=== PATIENT | male | born 1945 | race Caucasian/White ===

== ENCOUNTER 2021-04-08 10:10 | Outpatient (REF) | payer MEDICARE, BC, SELFPAY ==
[2021-04-08 11:13] LABS: MANUAL DIFF FLAG NO
[2021-04-08 11:24] LABS: Basophils Percent Auto 0.3 % (0-2); Eosinophils Absolute Auto 0.1 X10*3/uL (0.0-0.4); Eosinophils Percent Auto 0.6 % (0-4); Hematocrit 43.2 % (42-52); Hemoglobin 14.7 g/dl (14.0-18.0); Imm Gran Abs Auto 0.03 X10*3/uL (0.00-0.03); Imm Gran Pct Auto 0.3 % (0.0-0.4); Lymphocytes Absolute Auto 1.8 X10*3/uL (1.2-4.9); Lymphocytes Percent Auto 20.7 % (20-40); Mean Corpuscular Hemoglobin 31.5 pg (27.0-33.0); Mean Corpuscular Volume 92.5 fL (80-98); Mean Platelet Volume 10.4 fL (9.4-12.4); Monocytes Absolute Auto 0.6 X10*3/uL (0.1-1.2); Monocytes Percent Auto 6.6 % (2-11); Neutrophils Absolute Auto 6.2 X10*3/uL (2.0-8.3); Neutrophils Percent Auto 71.5 % (45-73); Platelet Count 194 X10*3/uL (160-400); Red Blood Count 4.67 X10*6/uL (4.60-5.80); Red Cell Distribution Width 12.3 % (11.0-16.0); White Blood Count 8.7 X10*3/uL (4.8-10.8)
[2021-04-08 12:20] LABS: Alanine Aminotransferase 43 U/L (0-40); Albumin Level 3.9 g/dL (3.5-5.0); Alkaline Phosphatase 101 U/L (39-117); Anion Gap 15 (12-20); Aspartate Amino Transferase 30 U/L (5-37); Blood Urea Nitrogen 13 mg/dL (9-16); Calcium 9.2 mg/dL (8.4-10.2); Carbon Dioxide 24 mmol/L (22-29); Chloride 103 mmol/L (96-108); Cholesterol 116 mg/dL; Estimated Glomerular Filt Rate > 60; Glucose Random 205 mg/dL (60-115); HDL Cholesterol 38 mg/dL; LDL Cholesterol Calculated 51 mg/dl; Potassium 3.5 mmol/L (3.3-5.1); Sodium 138 mmol/L (135-145); Total Protein 6.6 g/dL (6.5-8.0); Triglycerides 139 mg/dL
== END 2021-04-08 10:11 | disposition home or self-care (01) ==
LOC: HO.LAB 10:10
PROVIDERS: PCP Internal Medicine; Visit Provider Internal Medicine
DX: E78.00 Pure hypercholesterolemia, unspecified (principal); I10 Essential (primary) hypertension
CPT/HCPCS: 36415; 80053; 80061; 85025

== ENCOUNTER 2021-04-14 07:14 | Outpatient (REF) | payer MEDICARE, BC, SELFPAY ==
[2021-04-14 08:33] LABS: Glucose Urine UA NEG (NEG); Leukocyte Esterase Urine NEG (NEG); Nitrite Urine NEG (NEG); PH 6.5 (5.0-8.0); Urine Blood NEG (NEG); Urine Ketones NEG (NEG); Urine Protein NEG (NEG-TRACE)
[2021-04-14 08:42] LABS: Appearance Urine CLEAR; Color Urine YELLOW
[2021-04-14 08:45] LABS: Estimated Average Glucose 111 mg/dL; Hemoglobin A1c % 5.5 %
[2021-04-14 09:01] LABS: Creatinine Urine 140.03 mg/dL; Microalbumin Urine < 5.0 mg/L
[2021-04-14 09:08] LABS: Anion Gap 12 (12-20); Blood Urea Nitrogen 10 mg/dL (9-16); Calcium 9.2 mg/dL (8.4-10.2); Carbon Dioxide 29 mmol/L (22-29); Chloride 103 mmol/L (96-108); Estimated Glomerular Filt Rate > 60; Glucose Random 89 mg/dL (60-115); Potassium 3.8 mmol/L (3.3-5.1); Sodium 140 mmol/L (135-145)
== END 2021-04-14 07:15 | disposition home or self-care (01) ==
LOC: HO.LAB 07:14
PROVIDERS: PCP Internal Medicine; Visit Provider Internal Medicine
DX: R73.01 Impaired fasting glucose (principal)
CPT/HCPCS: 36415; 80048; 81003; 82043; 83036

== ENCOUNTER 2021-10-20 08:10 | Outpatient (REF) | payer MEDICARE, BC, SELFPAY ==
[2021-10-20 08:25] LABS: MANUAL DIFF FLAG NO
[2021-10-20 08:55] LABS: Basophils Percent Auto 0.4 % (0-2); Eosinophils Absolute Auto 0.1 X10*3/uL (0.0-0.4); Eosinophils Percent Auto 1.1 % (0-4); Hematocrit 45.6 % (42.0-52.0); Hemoglobin 15.4 g/dl (14.0-18.0); Imm Gran Abs Auto 0.03 X10*3/uL (0.00-0.03); Imm Gran Pct Auto 0.4 % (0.0-0.4); Lymphocytes Absolute Auto 1.9 X10*3/uL (1.2-4.9); Lymphocytes Percent Auto 22.5 % (20-40); Mean Corpuscular HGB Conc 33.8 g/dl (31.0-36.0); Mean Corpuscular Hemoglobin 31.8 pg (27.0-33.0); Mean Platelet Volume 10.3 fL (9.4-12.4); Monocytes Absolute Auto 0.8 X10*3/uL (0.1-1.2); Monocytes Percent Auto 9.7 % (2-11); Neutrophils Absolute Auto 5.7 x10*3/uL (2.0-8.3); Neutrophils Percent Auto 65.9 % (45-73); Platelet Count 197 X10*3/uL (160-400); Red Blood Count 4.85 X10*6/uL (4.60-5.80); Red Cell Distribution Width 12.3 % (11.0-16.0); White Blood Count 8.6 X10*3/uL (4.8-10.8)
[2021-10-20 08:58] LABS: Appearance Urine CLEAR; Color Urine YELLOW; Glucose Urine UA NEG (NEG); Leukocyte Esterase Urine NEG (NEG); Nitrite Urine NEG (NEG); Urine Blood NEG (NEG); Urine Ketones NEG (NEG); Urine Protein NEG (NEG-TRACE)
[2021-10-20 09:19] LABS: Alanine Aminotransferase 47 U/L (0-40); Albumin Level 4.1 g/dL (3.5-5.0); Alkaline Phosphatase 84 U/L (39-117); Anion Gap 12 (12-20); Aspartate Amino Transferase 36 U/L (5-37); Bilirubin Total 1.4 mg/dL (0.0-1.0); Blood Urea Nitrogen 14 mg/dL (9-16); Calcium 9.5 mg/dL (8.4-10.2); Carbon Dioxide 28 mmol/L (22-29); Chloride 104 mmol/L (96-108); Cholesterol 130 mg/dL; Estimated Glomerular Filt Rate > 60; Glucose Random 93 mg/dL (60-115); HDL Cholesterol 38 mg/dL; LDL Cholesterol Calculated 71 mg/dl; Potassium 3.6 mmol/L (3.3-5.1); Sodium 140 mmol/L (135-145); Total Protein 7.1 g/dL (6.5-8.0); Triglycerides 109 mg/dL
== END 2021-10-20 08:11 | disposition home or self-care (01) ==
LOC: HO.LAB 08:10
PROVIDERS: PCP Internal Medicine; Visit Provider Internal Medicine
DX: I10 Essential (primary) hypertension (principal); E78.00 Pure hypercholesterolemia, unspecified; R35.1 Nocturia
CPT/HCPCS: 36415; 80053; 80061; 81003; 84443; 85025

== ENCOUNTER 2022-04-13 07:56 | Outpatient (REF) | payer MEDICARE, BC, SELFPAY ==
[2022-04-13 09:15] LABS: Alanine Aminotransferase 45 U/L (0-40); Albumin Level 4.1 g/dL (3.5-5.0); Alkaline Phosphatase 78 U/L (39-117); Aspartate Amino Transferase 31 U/L (5-37); Bilirubin Direct 0.5 mg/dL (0.0-0.5); Bilirubin Total 1.1 mg/dL (0.0-1.0); Total Protein 6.9 g/dL (6.5-8.0)
== END 2022-04-13 07:57 | disposition home or self-care (01) ==
LOC: HO.LAB 07:56
PROVIDERS: PCP Internal Medicine; Visit Provider Internal Medicine
DX: R94.5 Abnormal results of liver function studies (principal)
CPT/HCPCS: 36415; 80076

== ENCOUNTER 2022-06-09 08:08 | Outpatient (REF) | payer MEDICARE, BC, SELFPAY ==
[2022-06-09 08:32] LABS: MANUAL DIFF FLAG NO
[2022-06-09 08:57] LABS: Basophils Percent Auto 0.3 % (0-2); Eosinophils Absolute Auto 0.1 X10*3/uL (0.0-0.4); Eosinophils Percent Auto 1.2 % (0-4); Hematocrit 43.6 % (42.0-52.0); Imm Gran Abs Auto 0.02 X10*3/uL (0.00-0.03); Imm Gran Pct Auto 0.3 % (0.0-0.4); Lymphocytes Absolute Auto 2.1 X10*3/uL (1.2-4.9); Lymphocytes Percent Auto 27.4 % (20-40); Mean Corpuscular HGB Conc 34.4 g/dl (31.0-36.0); Mean Platelet Volume 10.4 fL (9.4-12.4); Monocytes Absolute Auto 0.8 X10*3/uL (0.1-1.2); Monocytes Percent Auto 9.9 % (2-11); Neutrophils Absolute Auto 4.8 x10*3/uL (2.0-8.3); Neutrophils Percent Auto 60.9 % (45-73); Platelet Count 188 X10*3/uL (160-400); Red Blood Count 4.69 X10*6/uL (4.60-5.80); Red Cell Distribution Width 12.4 % (11.0-16.0); White Blood Count 7.8 X10*3/uL (4.8-10.8)
[2022-06-09 09:27] LABS: Alanine Aminotransferase 37 U/L (0-40); Albumin Level 4.1 g/dL (3.5-5.0); Alkaline Phosphatase 85 U/L (39-117); Anion Gap 13 (12-20); Aspartate Amino Transferase 31 U/L (5-37); Bilirubin Total 1.7 mg/dL (0.0-1.0); Blood Urea Nitrogen 14 mg/dL (9-16); Calcium 8.9 mg/dL (8.4-10.2); Carbon Dioxide 29 mmol/L (22-29); Chloride 103 mmol/L (96-108); Cholesterol 116 mg/dL; Estimated Glomerular Filt Rate > 60; Glucose Random 89 mg/dL (60-115); HDL Cholesterol 38 mg/dL; LDL Cholesterol Calculated 59 mg/dl; Sodium 141 mmol/L (135-145); Triglycerides 95 mg/dL
[2022-06-09 09:29] LABS: Appearance Urine Clear; Color Urine Yellow; Glucose Urine UA Negative (Negative); Leukocyte Esterase Urine Negative (Negative); Nitrite Urine Negative (Negative); PH 6.5 (5.0-9.0); Specific Gravity - Urine 1.015 (1.005-1.025); UMIC TRIGGER UA YES; Urine Blood Negative (Negative); Urine Ketones Trace mg/dL (Negative); Urine Protein Negative (Neg-Trace)
[2022-06-09 09:52] LABS: Thyroid Stimulating Hormone 0.52 uIU/mL (0.32-4.0)
== END 2022-06-09 08:09 | disposition home or self-care (01) ==
LOC: HO.LAB 08:08
PROVIDERS: PCP Internal Medicine; Visit Provider Internal Medicine
DX: I10 Essential (primary) hypertension (principal); E78.00 Pure hypercholesterolemia, unspecified
CPT/HCPCS: 36415; 80053; 80061; 81001; 81003; 84443; 85025

== ENCOUNTER 2022-09-29 07:46 | Outpatient (REF) | payer MEDICARE, BC, SELFPAY ==
[2022-09-29 08:02] LABS: MANUAL DIFF FLAG NO
[2022-09-29 08:33] LABS: Basophils Percent Auto 0.4 % (0-2); Eosinophils Percent Auto 1.5 % (0-4); Hemoglobin 15.1 g/dl (14.0-18.0); Imm Gran Abs Auto 0.02 X10*3/uL (0.00-0.03); Imm Gran Pct Auto 0.2 % (0.0-0.4); Lymphocytes Absolute Auto 2.3 X10*3/uL (1.2-4.9); Lymphocytes Percent Auto 27.1 % (20-40); Mean Corpuscular HGB Conc 33.6 g/dl (31.0-36.0); Mean Corpuscular Hemoglobin 31.5 pg (27.0-33.0); Mean Corpuscular Volume 93.9 fL (80.0-98.0); Mean Platelet Volume 10.5 fL (9.4-12.4); Monocytes Percent Auto 9.5 % (2-11); Neutrophils Absolute Auto 5.1 x10*3/uL (2.0-8.3); Neutrophils Percent Auto 61.3 % (45-73); Platelet Count 198 X10*3/uL (160-400); Red Blood Count 4.79 X10*6/uL (4.60-5.80); Red Cell Distribution Width 12.1 % (11.0-16.0); White Blood Count 8.4 X10*3/uL (4.8-10.8)
[2022-09-29 08:34] LABS: Eosinophils Absolute Auto 0.1 X10*3/uL (0.0-0.4); Monocytes Absolute Auto 0.8 X10*3/uL (0.1-1.2)
[2022-09-29 08:42] LABS: Appearance Urine Clear; Color Urine Yellow; Glucose Urine UA Negative (Negative); Leukocyte Esterase Urine Negative (Negative); Nitrite Urine Negative (Negative); PH 6.5 (5.0-9.0); Urine Blood Negative (Negative); Urine Ketones Trace mg/dL (Negative); Urine Protein Trace mg/dL (Neg-Trace)
[2022-09-29 09:05] LABS: Alanine Aminotransferase 47 U/L (0-40); Alkaline Phosphatase 90 U/L (39-117); Anion Gap 13 (12-20); Aspartate Amino Transferase 37 U/L (5-37); Bilirubin Total 1.3 mg/dL (0.0-1.0); Blood Urea Nitrogen 12 mg/dL (9-16); Calcium 8.7 mg/dL (8.4-10.2); Carbon Dioxide 27 mmol/L (22-29); Chloride 104 mmol/L (96-108); Cholesterol 124 mg/dL; Estimated Glomerular Filt Rate > 60; Glucose Random 92 mg/dL (60-115); HDL Cholesterol 43 mg/dL; LDL Cholesterol Calculated 61 mg/dl; Potassium 3.5 mmol/L (3.3-5.1); Sodium 140 mmol/L (135-145); Total Protein 6.9 g/dL (6.5-8.0); Triglycerides 100 mg/dL
== END 2022-09-29 07:47 | disposition home or self-care (01) ==
LOC: HO.LAB 07:46
PROVIDERS: PCP Internal Medicine; Visit Provider Internal Medicine
DX: E78.00 Pure hypercholesterolemia, unspecified (principal); I10 Essential (primary) hypertension
CPT/HCPCS: 36415; 80053; 80061; 81003; 84443; 85025

== ENCOUNTER 2022-11-27 08:13 | Outpatient (REF) | payer MEDICARE, BC, SELFPAY ==
[2022-11-27 09:33] LABS: Alanine Aminotransferase 38 U/L (0-40); Albumin Level 4.1 g/dL (3.5-5.0); Alkaline Phosphatase 98 U/L (39-117); Anion Gap 13 (12-20); Aspartate Amino Transferase 34 U/L (5-37); Bilirubin Total 1.4 mg/dL (0.0-1.0); Blood Urea Nitrogen 13 mg/dL (9-16); Calcium 8.9 mg/dL (8.4-10.2); Carbon Dioxide 28 mmol/L (22-29); Chloride 104 mmol/L (96-108); Estimated Glomerular Filt Rate > 60; Glucose Random 97 mg/dL (60-115); Potassium 3.9 mmol/L (3.3-5.1); Sodium 141 mmol/L (135-145); Total Protein 6.9 g/dL (6.5-8.0)
== END 2022-11-27 08:14 | disposition home or self-care (01) ==
LOC: HO.LAB 08:13
PROVIDERS: PCP Internal Medicine; Visit Provider Internal Medicine
DX: I10 Essential (primary) hypertension (principal); R94.5 Abnormal results of liver function studies
CPT/HCPCS: 36415; 80053

== ENCOUNTER 2022-12-30 11:43 | Outpatient (REF) | payer MEDICARE, BC, SELFPAY ==
--- NOTE | ~2022-12-30 | XR_ITS ---
EXAMINATION: XR CHEST CLINICAL INFORMATION: Cough. COMPARISON: Chest x-ray 09/15/2016 TECHNIQUE: 2 views of the chest were obtained. FINDINGS: Lungs are clear. No pulmonary vascular congestion. There is no pleural effusion. The heart size is normal. The cardiac and mediastinal contours are normal. . There are multilevel degenerative changes of dorsal spine. XR/XR chest 2V IMPRESSION: Unremarkable examination.
== END 2022-12-30 11:44 | disposition home or self-care (01) ==
LOC: HO.XRAY 11:43
PROVIDERS: PCP Internal Medicine; Visit Provider Internal Medicine
DX: R05.2 Subacute cough (principal)
CPT/HCPCS: 71046

== ENCOUNTER 2023-05-18 07:53 | Outpatient (REF) | payer MEDICARE, BC, SELFPAY ==
[2023-05-18 08:15] LABS: MANUAL DIFF FLAG NO
[2023-05-18 08:51] LABS: Basophils Percent Auto 0.3 % (0-2); Eosinophils Absolute Auto 0.1 X10*3/uL (0.0-0.4); Eosinophils Percent Auto 1.1 % (0-4); Hematocrit 45.9 % (42.0-52.0); Hemoglobin 15.7 g/dl (14.0-18.0); Imm Gran Abs Auto 0.04 X10*3/uL (0.00-0.03); Imm Gran Pct Auto 0.4 % (0.0-0.4); Lymphocytes Absolute Auto 2.4 X10*3/uL (1.2-4.9); Lymphocytes Percent Auto 25.3 % (20-40); Mean Corpuscular HGB Conc 34.2 g/dl (31.0-36.0); Mean Corpuscular Hemoglobin 31.5 pg (27.0-33.0); Mean Corpuscular Volume 92.2 fL (80.0-98.0); Mean Platelet Volume 10.8 fL (9.4-12.4); Monocytes Absolute Auto 0.8 X10*3/uL (0.1-1.2); Monocytes Percent Auto 8.1 % (2-11); Neutrophils Absolute Auto 6.1 x10*3/uL (2.0-8.3); Neutrophils Percent Auto 64.8 % (45-73); Platelet Count 192 X10*3/uL (160-400); Red Blood Count 4.98 X10*6/uL (4.60-5.80); Red Cell Distribution Width 12.1 % (11.0-16.0); White Blood Count 9.4 X10*3/uL (4.8-10.8)
[2023-05-18 09:17] LABS: Alanine Aminotransferase 56 U/L (0-40); Alkaline Phosphatase 88 U/L (39-117); Anion Gap 13 (12-20); Aspartate Amino Transferase 35 U/L (5-37); Bilirubin Total 1.2 mg/dL (0.0-1.0); Blood Urea Nitrogen 10 mg/dL (9-16); Calcium 9.5 mg/dL (8.4-10.2); Carbon Dioxide 28 mmol/L (22-29); Chloride 103 mmol/L (96-108); Cholesterol 110 mg/dL (<200); Estimated Glomerular Filt Rate > 60; Glucose Random 90 mg/dL (60-115); HDL Cholesterol 38 mg/dL (>40); LDL Cholesterol Calculated 55 mg/dL (<100); Potassium 3.5 mmol/L (3.3-5.1); Sodium 140 mmol/L (135-145); Total Protein 7.4 g/dL (6.5-8.0); Triglycerides 89 mg/dL (<150)
[2023-05-18 09:35] LABS: TSH reflex Free T4 0.68 uIU/mL (0.32-4.0)
== END 2023-05-18 07:54 | disposition home or self-care (01) ==
LOC: HO.LAB 07:53
PROVIDERS: PCP Internal Medicine; Visit Provider Internal Medicine
DX: I10 Essential (primary) hypertension (principal); Z86.73 Personal history of transient ischemic attack (TIA), and cerebral infarction without residual deficits; E78.00 Pure hypercholesterolemia, unspecified
CPT/HCPCS: 36415; 80053; 80061; 84443; 85025

== ENCOUNTER 2023-06-22 08:16 | Outpatient (REF) | payer MEDICARE, BC, SELFPAY ==
[2023-06-22 09:40] LABS: Alanine Aminotransferase 36 U/L (0-40); Albumin Level 3.9 g/dL (3.5-5.0); Alkaline Phosphatase 91 U/L (39-117); Anion Gap 16 (12-20); Aspartate Amino Transferase 30 U/L (5-37); Bilirubin Total 1.3 mg/dL (0.0-1.0); Blood Urea Nitrogen 11 mg/dL (9-16); Calcium 9.4 mg/dL (8.4-10.2); Carbon Dioxide 25 mmol/L (22-29); Chloride 103 mmol/L (96-108); Estimated Glomerular Filt Rate > 60; Glucose Random 95 mg/dL (60-115); Magnesium 2.1 mg/dL (1.6-2.6); Potassium 3.9 mmol/L (3.3-5.1); Sodium 140 mmol/L (135-145); Total Protein 7.2 g/dL (6.5-8.0)
== END 2023-06-22 08:17 | disposition home or self-care (01) ==
LOC: HO.LAB 08:16
PROVIDERS: PCP Internal Medicine; Visit Provider Internal Medicine
DX: I10 Essential (primary) hypertension (principal); R94.5 Abnormal results of liver function studies
CPT/HCPCS: 36415; 80053; 83735

== ENCOUNTER 2023-10-11 13:34 | Outpatient (REF) | payer MEDICARE, BC, SELFPAY | END 2023-10-11 13:35 | disposition home or self-care (01) | LOC: HO.SH 13:34 | PROVIDERS: Visit Provider Internal Medicine | DX: Z01.118 Encounter for examination of ears and hearing with other abnormal findings (principal); H90.3 Sensorineural hearing loss, bilateral | CPT/HCPCS: 92557 ==

== ENCOUNTER 2023-11-16 13:49 | Outpatient (REF) | payer MEDICARE, BC, SELFPAY ==
--- NOTE | 2023-11-17 08:44 | MHC.AU.MED ---
Medical Clearance for Hearing Instrumentation Date: 11/16/23 Patient Name: Edmar Bird Date of : 1945 Primary Care Provider: Chris Pascal MD We have seen your patient on 11/16/23 and have determined that they are a candidate for amplification (See accompanying report). Specifically, they would benefit from: Hearing aid use in both ears There is a statute that addresses Medical Evaluation Requirements prior to fitting a patient with a hearing aid. According to [place] statute 265 CMR:6.03(1), (a) General. Except as provided in 265 CMR 6.03(1)(b), a molder bench shall not sell a hearing aid unless the prospective user has presented to the molder bench a written statement signed by a licensed physician that states that the patient's hearing loss has been medically evaluated and the patient may be considered a candidate for a hearing aid. The medical evaluation must have taken place within the preceding six months. Please note: Due to the [place] Statute referenced above, we cannot accept a signature other than that of a licensed physician. ORIENTAL RUG STRETCHER and PA signatures cannot be accepted. I am in agreement with the above recommendation. There is no medical contraindication for hearing instrumentation. Physician Signature Date Physician Name (Printed)
--- NOTE | 2023-11-18 13:10 | MHC.AU.HA1 ---
Hearing Aid Evaluation Date of Visit: 11/16/23 Historical Information: Description of Hearing: Within normal steeply sloping to severe sensorineural hearing loss, bilaterally. Summary: Edmar was reportedly [facility]; therefore, he is hoping to utilize the hearing aid benefit through his [facility] Federal Employee insurance. Explained that [facility] recently changed requirements/process for their hearing aid benefit (i.e., needs medical clearance, prior approval, and possibly INFRASTRUCTURE SOLUTIONS ARCHITECT >40 dB HL). Edmar understands that he is the first patient to try this through [facility] and he is agreeable to working together to figure out the process. Edmar reportedly lives a sedentary lifestyle. He does not typically attend restaurants or noisy environments. He does socialize with friends, talks on the telephone, goes to doctors' appointments, shopping, etc. Edmar opted to trial a battery-powered RITE hearing aid. Discussed bluetooth compatibility with his Samsung cellphone. He reportedly rarely uses his cellphone and makes a majority of phone calls on the landline. Given his preference for a battery-powered hearing aid and lack of interest in bluetooth, chose Oticon for newest battery-powered RITE. *Will need to request medical clearance from PCP then submit prior approval to [facility]. Edmar reported that if the hearing aids are not approved through [facility], he is unsure he will be able to afford them himself. Therefore, he did not pay the $350.00 consultation fee today. If approved by [facility], Edmar will need to pay the $350.00 consultation fee prior to ordering the devices. He also knows he will be responsible for any amount over the $2,500.00 limit by [facility]. Quoted $2963.00 for Quiet Level technology hearing aids ($463.00 estimated patient responsibility, plus initial $350.00 consultation fee). Hearing Aid Prescription: Based on the individual?s shared listening needs, communication environments, dexterity, desire for connectivity, and personal preferences, the following prescription for amplification has been made: Right ear: Make, Model, Color: Oticon Real 3 miniRITE-T Color: Chroma Beige Battery Size: Rechargeable Renal Technician/Slim Tube: Type of Earmold/Dome/CShell/SlimTip: 6mm double barajas dome Left ear: Left ear prescription to be same as Right Hearing Aid above: Make, Model, Color: Oticon Real 3 miniRITE-T Color: Chroma Beige Battery Size: Rechargeable Renal Technician/Slim Tube: 2 Type of Earmold/Dome/CShell/SlimTip: 6mm double barajas dome Accessories/Assistive Technology: Parcel Contractor, TV adapter Plan of Care: Patient wishes to purchase hearing aids as prescribed Action Taken/Action Needed: Prior authorization to be requested. Medical Clearance to be requested from PCP/ENT. Hearing Instrument Fitting to be scheduled when materials arrive Primary Diagnosis: H90.3 Bilateral Sensorineural Hearing Loss Signature: Provider: Ethan Govea, [facility]
== END 2023-11-16 13:50 | disposition home or self-care (01) ==
LOC: HO.HAP 13:49
PROVIDERS: Visit Provider Internal Medicine
DX: Z13.89 Encounter for screening for other disorder (principal)

== ENCOUNTER → 2023-12-15 12:40 | Outpatient (REF) | payer MEDICARE, BC, SELFPAY ==
--- NOTE | 2023-12-15 12:44 | CA_ITS ---
Transthoracic Echocardiogram Patient (Last, First, Middle): Edmar Bird H Gender: Male Date of : 1945 Age: 78 Procedure Date: 12/15/2023 Procedure Type: Transthoracic Echocardiogram Location: OP Height: 172.72 cm Weight: 79.38 kg BSA: 1.93 m2 Heart Rate: bpm BP: 146 / 68 mmHg Pharmaceutical Plant Operator: TO Referring MD: Chris Pascal MD Symptoms: CARDIAC MURMUR Study Quality: Fair/Contrast ECG Rhythm: Sinus Conclusions: - The left ventricular systolic function is normal. The calculated ejection fraction is 65% by biplane method. - There is mild calcification of the aortic valve. - No obvious valvular pathology seen on this study. Findings Procedure Information Contrast agent, definity, is being given per protocol without apparent complications. Left Ventricle Normal left ventricular cavity size. There is mildly increased left ventricular wall thickness. The left ventricular systolic function is normal. The calculated ejection fraction is 65% by biplane method. There is no evidence of regional wall motion abnormalities. Evidence suggests grade I (mild) diastolic dysfunction. Focal hypertrophy of the basal septum. Right Ventricle Mildly increased right ventricular cavity size. There is normal right ventricular systolic function. Atria Both atria are normal in size. Aortic Valve There is mild calcification of the aortic valve. There is no aortic valve stenosis. There is no aortic valve regurgitation. Mitral Valve There is mild anterior mitral leaflet thickening. There is trace mitral valve regurgitation. There is no mitral valve stenosis. Pulmonic Valve The pulmonic valve is likely normal. Tricuspid Valve Normal tricuspid valve structure. There is trace tricuspid valve regurgitation. Tricuspid regurgitation envelope is inadequate for calculation of right ventricular systolic pressure. Great Vessels The asc aorta is normal in size. Venous The inferior vena cava is normal in size and collapses greater than 50% with inspiration. Pericardium/Pleural There is no evidence of pericardial effusion. Prior Study Comparison No significant change compared to prior study dated: 01/27/2019. Recommendations, Care & Conclusions No obvious valvular pathology seen on this study. Measurements 2D Linear Measurements IVSd: 1.62 0.6-0.9/0.6-1.0 cm LVIDd: 4.29 3.9-5.3/4.2-5.9 cm LVIDd Index: 2.22 2.4-3.2/2.2-3.1 cm/m2 LVIDs: 2.87 2.0-3.6 cm LVPWd: 1.10 0.7-1.1 cm LA Diam: 4.10 2.7-3.8/3.0-4.0 cm LAIDs Index: 2.12 1.5-2.3 cm/m2 LV Mass: 276.14 67-162/88-224 g LV Mass Index: 143.08 43-95/49-115 g/m2 LVOT Diam: 2.20 3.0+(-)1.3 cm 2D Systolic Function EF 4C: 63.60 >55% EF 2C: 65.50 >55% EF BiP: 65.00 >55% Mitral Valve MV VTI: 0.28 MV Pk Juventino: 1.03 MV Mn Juventino: 0.54 MV Pk Grad: 4.00 MV Mn Grad: 1.00 MV Pk E: 0.51 MV PK A: 0.94 MV Decel Time: 278.00 E/A: 0.50 E'Lateral: 5.33 E'Medial: 3.05 E/E' Med: 16.60 E/E' Lat: 9.50 PHT: 81.00 MVA PHT: 2.72 MVA Continuity: 3.05 Decel Latimer: 1.82 Aortic Valve AoV Pk Juventino: 1.81 AoV Mn Juventino: 1.25 AoV VTI: 0.38 AoV Pk Grad: 13.00 Aov Mn Grad: 7.00 KINGSLEY Cont.VTI: 2.28 LVOT LVOT Pk Juventino: 1.06 LVOT Mn Juventino: 0.67 LVOT VTI: 0.23 LVOT Pk Grad: 4.00 LVOT Mn Grad: 2.00 LVOT Diam: 2.20 LVOT Area: 3.80 Diastolic Function MV Pk E: 0.51 MV Pk A: 0.94 E/A: 0.50 E'Medial: 3.05 E/E' Med: 16.60 E' Laterial: 5.33 E/E' Lat: 9.50 Right Ventricle TAPSE (mm): 22.30 TVS' Juventino: 10.80 Tricuspid Valve RA Press: 3.00 Great Vessels Aorta Sinus of Valsalva: 3.39 2.0-3.5 cm Ao Asc: 3.70 2.1-3.4 cm Updated in Other Vendor System with Status of Final Madhu Little MD electronically signed on 12/16/2023 1:30:22 PM with status of Final
== END ==
LOC: HO.CARD 12:40
PROVIDERS: PCP Internal Medicine; Visit Provider Internal Medicine
DX: R01.1 Cardiac murmur, unspecified (principal)
CPT/HCPCS: 93306; Q9957

== ENCOUNTER → 2023-12-15 12:44 | Outpatient (BNV) | payer MEDICARE, BC, SELFPAY | PROVIDERS: PCP Internal Medicine; Visit Provider Internal Medicine | DX: R01.1 Cardiac murmur, unspecified (principal); I35.8 Other nonrheumatic aortic valve disorders | CPT/HCPCS: 93306 ==

== ENCOUNTER 2024-02-24 07:03 | Outpatient (REF) | payer MEDICARE, BC, SELFPAY ==
[2024-02-24 07:16] LABS: MANUAL DIFF FLAG NO
[2024-02-24 07:58] LABS: Basophils Percent Auto 0.4 % (0-2); Eosinophils Absolute Auto 0.1 X10*3/uL (0.0-0.4); Eosinophils Percent Auto 0.9 % (0-4); Hematocrit 45.9 % (42.0-52.0); Hemoglobin 15.5 g/dl (14.0-18.0); Imm Gran Abs Auto 0.02 X10*3/uL (0.00-0.03); Imm Gran Pct Auto 0.2 % (0.0-0.4); Lymphocytes Absolute Auto 2.1 X10*3/uL (1.2-4.9); Lymphocytes Percent Auto 26.1 % (20-40); Mean Corpuscular HGB Conc 33.8 g/dl (31.0-36.0); Mean Corpuscular Hemoglobin 31.6 pg (27.0-33.0); Mean Corpuscular Volume 93.7 fL (80.0-98.0); Mean Platelet Volume 10.2 fL (9.4-12.4); Monocytes Absolute Auto 0.8 X10*3/uL (0.1-1.2); Monocytes Percent Auto 9.8 % (2-11); Neutrophils Absolute Auto 5.1 x10*3/uL (2.0-8.3); Neutrophils Percent Auto 62.6 % (45-73); Platelet Count 201 X10*3/uL (160-400); Red Cell Distribution Width 12.1 % (11.0-16.0); White Blood Count 8.2 X10*3/uL (4.8-10.8)
[2024-02-24 08:06] LABS: Estimated Average Glucose 111 mg/dL; Hemoglobin A1c % 5.5 % (<6.0)
[2024-02-24 08:30] LABS: Alanine Aminotransferase 36 U/L (0-40); Albumin Level 4.4 g/dL (3.5-5.0); Alkaline Phosphatase 97 U/L (39-117); Anion Gap 14 (12-20); Aspartate Amino Transferase 32 U/L (5-37); Bilirubin Total 1.3 mg/dL (0.0-1.0); Blood Urea Nitrogen 15 mg/dL (9-16); Calcium 9.3 mg/dL (8.4-10.2); Carbon Dioxide 27 mmol/L (22-29); Chloride 103 mmol/L (96-108); Cholesterol 124 mg/dL (<200); Estimated Glomerular Filt Rate > 60; Glucose Random 90 mg/dL (60-115); HDL Cholesterol 46 mg/dL (>40); LDL Cholesterol Calculated 58 mg/dL (<100); Potassium 3.2 mmol/L (3.3-5.1); Sodium 141 mmol/L (135-145); Total Protein 7.9 g/dL (6.5-8.0); Triglycerides 103 mg/dL (<150)
[2024-02-24 08:46] LABS: Thyroid Stimulating Hormone 0.64 uIU/mL (0.32-4.0)
== END 2024-02-24 07:04 | disposition home or self-care (01) ==
LOC: HO.LAB 07:03
PROVIDERS: PCP Internal Medicine; Visit Provider Internal Medicine
DX: E78.00 Pure hypercholesterolemia, unspecified (principal); I10 Essential (primary) hypertension; R73.01 Impaired fasting glucose
CPT/HCPCS: 36415; 80053; 80061; 83036; 84443; 85025

== ENCOUNTER 2024-03-02 07:21 | Outpatient (REF) | payer MEDICARE, BC, SELFPAY ==
[2024-03-02 09:01] LABS: Potassium 4.1 mmol/L (3.3-5.1)
== END 2024-03-02 07:22 | disposition home or self-care (01) ==
LOC: HO.LAB 07:21
PROVIDERS: PCP Internal Medicine; Visit Provider Internal Medicine
DX: E87.6 Hypokalemia (principal)
CPT/HCPCS: 36415; 84132

== ENCOUNTER 2024-10-17 07:44 | Outpatient (REF) | payer MEDICARE, BC, SELFPAY ==
[2024-10-17 08:04] LABS: MANUAL DIFF FLAG NO
[2024-10-17 08:34] LABS: Basophils Percent Auto 0.3 % (0-2); Eosinophils Absolute Auto 0.1 X10*3/uL (0.0-0.4); Eosinophils Percent Auto 0.9 % (0-4); Hematocrit 46.1 % (42.0-52.0); Hemoglobin 15.5 g/dl (14.0-18.0); Imm Gran Abs Auto 0.03 X10*3/uL (0.00-0.03); Imm Gran Pct Auto 0.3 % (0.0-0.4); Lymphocytes Absolute Auto 2.6 X10*3/uL (1.2-4.9); Lymphocytes Percent Auto 30.2 % (20-40); Mean Corpuscular HGB Conc 33.6 g/dl (31.0-36.0); Mean Corpuscular Hemoglobin 31.6 pg (27.0-33.0); Mean Corpuscular Volume 94.1 fL (80.0-98.0); Mean Platelet Volume 10.1 fL (9.4-12.4); Monocytes Absolute Auto 0.8 X10*3/uL (0.1-1.2); Monocytes Percent Auto 9.5 % (2-11); Neutrophils Absolute Auto 5.1 x10*3/uL (2.0-8.3); Neutrophils Percent Auto 58.8 % (45-73); Platelet Count 184 X10*3/uL (160-400); Red Cell Distribution Width 12.6 % (11.0-16.0); White Blood Count 8.7 X10*3/uL (4.8-10.8)
[2024-10-17 09:14] LABS: Alanine Aminotransferase 56 U/L (0-40); Albumin Level 4.1 g/dL (3.5-5.0); Alkaline Phosphatase 86 U/L (39-117); Anion Gap 11 (12-20); Aspartate Amino Transferase 39 U/L (5-37); Bilirubin Total 1.3 mg/dL (0.0-1.0); Blood Urea Nitrogen 14 mg/dL (9-16); Calcium 8.9 mg/dL (8.4-10.2); Carbon Dioxide 26 mmol/L (22-29); Chloride 107 mmol/L (96-108); Cholesterol 120 mg/dL (<200); Estimated Glomerular Filt Rate > 60; Glucose Random 93 mg/dL (60-115); HDL Cholesterol 43 mg/dL (>40); LDL Cholesterol Calculated 57 mg/dL (<100); Potassium 3.6 mmol/L (3.3-5.1); Sodium 140 mmol/L (135-145); Total Protein 7.8 g/dL (6.5-8.0); Triglycerides 102 mg/dL (<150)
[2024-10-17 09:19] LABS: Appearance Urine Clear; Color Urine Yellow; Glucose Urine UA Negative (Negative); Leukocyte Esterase Urine Negative (Negative); Nitrite Urine Negative (Negative); Specific Gravity - Urine <= 1.005 (1.005-1.025); Urine Blood Negative (Negative); Urine Ketones Negative (Negative); Urine Protein Negative (Neg-Trace)
[2024-10-17 09:32] LABS: TSH reflex Free T4 0.54 uIU/mL (0.32-4.0)
== END 2024-10-17 07:45 | disposition home or self-care (01) ==
LOC: HO.LAB 07:44
PROVIDERS: PCP Internal Medicine; Visit Provider Internal Medicine
DX: I10 Essential (primary) hypertension (principal)
CPT/HCPCS: 36415; 80053; 80061; 81003; 84443; 85025

== ENCOUNTER 2025-02-28 06:56 | Outpatient (REF) | payer MEDICARE, BC, SELFPAY ==
--- OUTSIDE RECORDS SUMMARY | 2025-02-28 06:59 | XMS_ITS | Patient Health Record ---
[facility] Address [address] [place] [address] Care Team Providers Care Tank Storage Supervisor Name Role Phone Chris Pascal MD Primary Care Provider Maddy De La Torre Unavailable [phone] Allergies Allergen (clinical drug ingredient) Drug/Non Drug Allergy documented on EMR Reaction Allergy Type Onset Date Status ciprofloxacin Cipro Unknown Drug Allergy Act tanisha Levaquin Unknown Drug Allergy Active Reason For Referral No Information Medications Medication SIG (Take, Route, Frequency, Duration) Notes Start Date End Date Status Multi Adult Gummies - as directed Orally Active Aspirin 81 MG 1 tablet Orally Once a day for 30 day(s) Active Plavix Active Metamucil Active Tamsulosin HCl 0.4 MG 1 capsule Orally O nce a day for 30 day(s) Active Clopidogrel Bisulfate 75 MG 1 tablet Ora lly Once a day for 30 day(s) Active oxyBUTYnin Chloride 5 MG 1 tablet Orally Twice a day for 30 day(s) Active Atorvastatin Calcium 40 MG 1 tablet Oral ly Once a day for 30 day(s) Active Lisinopril 40 MG 1 tablet Orally Once a day for 30 day(s) Active amLODIPine Besylate 5 MG 1 tablet Orally Once a day for 30 day(s) Active Immunizations Vaccine Route Administration Date Status Comme nts COVID-19 Moderna Vaccine Unknown 12/26/2020 Administered First Dose: 01/15 Social History Tobacco Use: Social History Observation Description Date Details (start date - stop date) Former Smoker NA - NA Tobacco Use/Smoking Question Answer Notes Are you a: former smoker Additional Findings: Tobacco Non-User Current no n-smoker Alcohol Screen Question Answer Notes Did you have a drink containing alcohol in the p ast year? No Points 0 Interpretation Negative Tobacco use other than smoking: Question Answer Notes Are you an other tobacco user? No Plan Of Treatment No Information Insurance Providers Payer Name Payer Address Payer Phone Subscriber Number Group Number Insured Name Patient Relationship to Insured Coverage Start Date Coverage End Date Medicare National Govt S[employer] [address] [place] [phone] [id number] Edmar Chin Self - patient is the insured [facility] [address] [place] [address] [id number] Edmar Chin Self - patient is the insured Medical (General) History Medical History History ICD Code Chicken pox Arthritis asthma Headaches Hiatal hernia High blood pressure Stroke Warts Surgical History Surgery Date(Month/Year) dental hernia
[2025-02-28 08:32] LABS: Alanine Aminotransferase 53 U/L (0-40); Albumin Level 4.2 g/dL (3.5-5.0); Aspartate Amino Transferase 41 U/L (5-37); Bilirubin Direct 0.4 mg/dL (0.0-0.5); Bilirubin Total 1.3 mg/dL (0.0-1.0); Total Protein 7.2 g/dL (6.5-8.0)
[2025-02-28 13:05] LABS: Alkaline Phosphatase 87 U/L (39-117)
== END 2025-02-28 06:57 | disposition home or self-care (01) ==
LOC: HO.LAB 06:56
PROVIDERS: PCP Internal Medicine; Visit Provider Internal Medicine
DX: R94.5 Abnormal results of liver function studies (principal)
CPT/HCPCS: 36415; 80076

== ENCOUNTER 2025-05-11 07:27 | Outpatient (REF) | payer MEDICARE, BC, SELFPAY ==
--- OUTSIDE RECORDS SUMMARY | 2025-01-09 05:00 | XMS_ITS ---
Author Name [facility] Organization [facility] [place] [facility] [place] Address [address] [place] [address] Support Name Relationship Address Phone BI [facility] Emergency Contact [address] [address] Insurance Providers: All historical and current Section Date Range: From patient's date of to the date document was created. This section includes the names of all active insurance providers for the patient. Insurance Provider Type of Coverage Plan Name Start of Policy Coverage End of Policy Coverage Group Number Member ID Insurance Provider's Telephone Number Policy Farooq's Name Patient's Relationship to Policy Farooq MEDICARE (WNR) MEDICARE (M) PART A Sep 27, 2011 PART A [id number] NU ZAFAR ESPINO PATIENT MEDICARE (WNR) MEDICARE (M) PART B Sep 27, 2011 PART B [id number] ZAFAR ESPINO PATIENT Selected Encounter This section includes the information on record at [place] for the Encounter. Date/Time Encounter Type Encounter Description Reason Provider Source Jan 09, 2025 09:00 AM HEARING AID REPAIR/MODIFYING AUDIOLOGY ICD-10-CM Z46.1 Encounter for fitting and adjustment of hearing aid ENID WOOD [facility] Encounter Template Text not used by [place] Assessments - Encounter Diagnoses This section includes the primary and secondary diagnoses documented for the Encounter. Date/Time Primary/Secondary Diagnosis Diagnosis Name Provider Source Jan 09, 2025 09:15 AM PRIMARY Encounter for fitting and adjustment of hearing aid ENID WOOD [place] [facility] [place] [facility] Jan 09, 2025 09:15 AM SECONDARY Sensorineural hearing loss, bilateral ENID WOOD [facility] Encounter Notes: All associated encounter notes This section contains the clinical notes associated to the Encounter. Date/Time Encounter Note(s) Provider Source Jan 09, 2025 08:34 AM AUDIOLOGY E & M NO TE: LOCAL TITLE: AUDIOLOGY CLINIC STANDARD TITLE: AUDIOLOGY E & M NOTE DATE OF NOTE: JAN 09, 2025@08:34 ENTRY DATE: JAN 09, 2025@08:34:07 AUTHOR: ENID WOOD COSIGNER: URGENCY: STATUS: COMPLETED was seen January 09, 2025 for routine maintenance on her Phonak LISANDRA aids. Wax guards, domes and retention lines replaced. Biologic check good. Otoscopy revealed clear canals both ears. [facility] will call as needed for follow up/maintenance. Suicide Screen: C-SSRS Screening [place]-Suicide Severity Rating Scale (C-SSRS Screener) 1. Over the past month, have you wished you were or wished you could go to sleep and not wake up? No 2. Over the past month, have you had any actual thoughts of killing yourself? No 3. Over the past month, have you been thinking about how you might do this? Response not required due to responses to other questions. 4. Over the past month, have you had these thoughts and had some intention of acting on them? Response not required due to responses to other questions. 5. Over the past month, have you started to work out or worked out the details of how to kill yourself? Response not required due to responses to other questions. 6. If yes, at any time in the past month did you intend to carry out this plan? Response not required due to responses to other questions. 7. In your lifetime, have you ever done anything, started to do anything, or prepared to do anything to end your life (for example, collected pills, obtained a gun, gave away valuables, went to the roof but didn't jump)? No 8. If YES, was this within the past 3 months? Response not required due to responses to other questions. /sis/ ENID Jung, JACKIE-A CHIEF, AUDIOLOGY/EXECUTIVE RECEPTIONIST Signed: 01/09/2025 09:15 ENID WOOD [facility]
--- NOTE | ~2025-05-11 | US_ITS ---
EXAMINATION: US ABDOMEN COMPLETE CLINICAL INFORMATION: Liver function abnormality.. COMPARISON: June 17, 2017. TECHNIQUE: Real-time ultrasound of the abdomen using grayscale and color Doppler technique. FINDINGS: PANCREAS: No peripancreatic fluid collections. No gross main pancreatic ductal dilatation. ABDOMINAL AORTA: The proximal, mid, and distal segments are normal in caliber. INFERIOR VENA CAVA: Visualized portions are normal. LIVER: Liver measures 15 cm. Coarse echotexture. There is a 0.9 cm round hyperechoic lesion without flow on color Doppler interrogation centered in the right hepatic lobe. No intrahepatic biliary ductal dilatation. Main portal vein is patent with normal hepatopedal flow direction. GALLBLADDER: Fluid-filled. Contracted. No pericholecystic fluid collection or gallbladder wall thickening. COMMON BILE DUCT: 4 mm. RIGHT KIDNEY: 10 cm. Normal echotexture. Normal renal cortical thickness. No hydronephrosis. No gross solid or cystic lesion. LEFT KIDNEY: 10 cm. Normal echotexture. Normal renal cortical thickness. No hydronephrosis. There is a 1 cm exophytic anechoic lesion in the upper pole. There is a 0.8 cm anechoic lesion at the corticomedullary junction of the lower pole. No septations. No nodular components. No flow on color Doppler interrogation. SPLEEN: 10 cm. FREE FLUID: None. US/US abdomen complete IMPRESSION: Probable hemangioma, hepatic. Hepatic steatosis. No cholelithiasis. Simple cysts, left kidney. No hydronephrosis. No ascites. Electronically signed by: Zain Hdez MD 05/11/2025 09:52 AM EDT
--- OUTSIDE RECORDS SUMMARY | 2025-05-11 07:29 | XMS_ITS | Patient Health Record ---
Author Organization [facility] Address [address] [place] [address] Care Team Providers Care Ultrasonic Solderer Name Role Phone Chris Pascal MD Primary Care Provider José Golden Jr Unavailable Allergies Allergen (clinical drug ingredient) Drug/Non Drug Allergy documented on EMR Reaction Allergy Type Onset Date Status ciprofloxacin Cipro Unknown Drug Allergy Act tanisha Reason For Referral No Information Medications Medication SIG (Take, Route, Frequency, Duration) Notes Start Date End Date Status amLODIPine Besy-Benazepril HCl 5-10 MG 1 capsule Orally Once a day Active Lisinopril 40 MG 1 tablet Orally Once a day Active Colyte with Flavor Packs 240 GM As directed Orally Over the specified time. for 1 day(s) 06/27/2014 Active Aspirin 81 MG 1 tablet Orally Once a day Active Metamucil 30.9 % Orally Act tanisha Multivitamin Orally Active Problems Problem Type SNOMED Code ICD Code Onset Dates Problem Status W/U Status Risk Notes Problem 031969816 Colon cancer screening (V76.51) Active confirmed Problem 117140345 Aspirin long-term use (V58.66) Active confirmed Plan Of Treatment Future Test Test Name Order Date COLONOSCOPY 06/27/2014 Insurance Providers Payer Name Payer Address Payer Phone Subscriber Number Group Number Insured Name Patient Relationship to Insured Coverage Start Date Coverage End Date MEDICARE OF [place] [address] [place] [address] [id number] ZAFAR STRAUSS Self - patient is the insured [facility] [address] [place], [place] [id number] ZAFAR STRAUSS Self - patient is the insured Medical (General) History Medical History History ICD Code hypertension elevated PSA Surgical History Surgery Date(Month/Year) vasectomy prostate biopsy dental extractions
--- OUTSIDE RECORDS SUMMARY | 2025-05-11 07:29 | XMS_ITS | Patient Health Record ---
Author Organization [facility] Address [address] [place] [address] Care Team Providers Care Comic Writer Name Role Phone Chris Pascal MD Primary Care Provider Maddy De La Torre Unavailable [phone] Allergies Allergen (clinical drug ingredient) Drug/Non Drug Allergy documented on EMR Reaction Allergy Type Onset Date Status ciprofloxacin Cipro Unknown Drug Allergy Act tanisha Levaquin Unknown Drug Allergy Active Reason For Referral No Information Medications Medication SIG (Take, Route, Frequency, Duration) Notes Start Date End Date Status Multi Adult Gummies - as directed Orally Active Aspirin 81 MG 1 tablet Orally Once a day; Duration: 30 day(s) Active Plavix Active Metamucil Active Tamsulosin HCl 0.4 MG 1 capsule Orally O nce a day; Duration: 30 day(s) Active Clopidogrel Bisulfate 75 MG 1 tablet Ora lly Once a day; Duration: 30 day(s) Active oxyBUTYnin Chloride 5 MG 1 tablet Orally Twice a day; Duration: 30 day(s) Active Atorvastatin Calcium 40 MG 1 tablet Oral ly Once a day; Duration: 30 day(s) Active Lisinopril 40 MG 1 tablet Orally Once a day; Duration: 30 day(s) Active amLODIPine Besylate 5 MG 1 tablet Orally Once a day; Duration: 30 day(s) Active Immunizations Vaccine Route Administration [...] Inc [address] [place] [address] [id number] Edmar Chin Self - patient is the insured [facility] [address] [place] [address] [id number] Edmar Chin Self - patient is the insured Medical (General) History Medical History History ICD Code Chicken pox Arthritis asthma Headaches Hiatal hernia High blood pressure Stroke Warts Surgical History Surgery Date(Month/Year) dental hernia
--- OUTSIDE RECORDS SUMMARY | 2025-05-11 07:29 | XMS_ITS | Clinical Summary ---
Author Organization [facility] Address [address] [place] [address] Phone Care Team Providers Care Crosscutter Rolled Glass Name Role Phone Chris Pascal MD Unavailable [phone] Chris Pascal MD Primary Care Provider [phone] Eugene Gonzalez MD Unavailable [phone] Allergies Active Allergy Reactions Criticality Noted Date Comments Ciprofloxacin Rash Low 10/12/2017 Levofloxacin 05/10/2023 Eye sensitivity Tacrolimus Headaches 09/15/2022 Tacrolimus topical Pt also reports while using this medication he experiences light sensitivity along with severe and continuious headache. Medications aspirin 81 mg chewable tablet Take 81 mg by mouth every other day. Active psyllium (METAMUCIL) Powd Use 1 scoop mixed into water once daily. Active multivitamin per tablet Take 1 tablet by mouth daily. Active tamsulosin (FLOMAX) 0.4 mg Cp24 Take 0.4 mg by mouth 2 (two) times a day. Active oxybutynin (DITROPAN-XL) 5 MG 24 hr tablet Take 1 tablet by mouth daily. 2021 Active TENS UNITS MISC by Miscellaneous route. Active lidocaine (LIDODERM) 5 %Indications:Chronic left shoulder pain,Chronic right-sided thoracic back pain Place 1 patch onto the skin daily as needed. Remove & Discard patch within 12 hours or as directed by 30 patch 5 2023 Active atorvastatin (LIPITOR) 40 MG tabletIndications:Pure hypercholesterolemia TAKE ONE TABLET BY MOUTH EVERY DAY 90 tablet 3 2024 Active clopidogrel (PLAVIX) 75 mg tablet TAKE ONE TABLET BY MOUTH EVERY DAY 90 tablet 3 2024 Active amLODIPine (NORVASC) 5 MG tabletIndications:Jossue gn essential hypertension TAKE ONE TABLET BY MOUTH EVERY DAY 90 tablet 3 2024 Active traMADoL (ULTRAM) 50 mg tabletIndications:Righ t hand pain Take 1 tablet (50 mg total) by mouth every 12 (twelve) hours as needed for pain (specific location in comments) (right hand pain). 14 tablet 2024 Active lisinopril (PRINIVIL,ZESTRIL) 40 MG tabletIndications:Esse ntial hypertension Take 0.5 tablets (20 mg total) by mouth 2 (two) times a day. 90 tablet 2024 Active lisinopril (PRINIVIL,ZESTRIL) 40 MG tabletIndications:Esse ntial hypertension Take 0.5 tablets (20 mg total) by mouth 2 (two) times a day. Take in am and afternoon 90 tablet 3 05/07 Discontinued Active Problems Problem Noted Date Diagnosed Date History of CVA in adulthood 03/07/2024 Traumatic tear of left rotator cuff 03/07/2024 Cough 12/30/2022 Assessment & Plan (08/14/2024 11:56 AM EST): Patient with noted cough with clear sputum since Wednesday. His cough he notes is not associated with any sob. I do not feel that patient warrants antibiotics at this time as the patient does not have any fevers and his sputum is clear. I did explain to the patient that if he starts to have any of these other symptoms then a chest x-ray would be warranted with a reevaluation and possible antibiotics at that time. I will order Robitussin AC as needed MassPAT verified. Cepheid multiplex negative Assessment & Plan (12/30/2022 9:40 AM EDT): While there is no sign of pneumonia the rhonchi and bronchovesicular breath sounds mid field right-sided should be investigated. Obtain a chest x-ray at [facility]. Consider a Z-Sujit if infiltrate. For the cough itself symptomatic relief with Robitussin-DM. Robitussin with codeine was not necessary. With With persisting symptoms we could consider a trial of Flonase 1 spray each nostril if the symptoms extend beyond Wednesday. He did have some signs of postnasal drip albeit no rhinorrhea perceived. Arthralgia of right hand 10/14/2017 Chronic bilateral low back pain without sciatica 10/14/2017 Essential hypertension 10/14/2017 Hypertension 10/14/2017 Hyperlipidemia 10/14/2017 Abnormal liver function 10/14/2017 Nocturia 10/14/2017 Non-recurrent unilateral ing uinal hernia without obstruction or gangrene 10/14/2017 Osteoarthritis of right thumb 10/14/2017 Primary osteoarthritis of fi rst carpometacarpal joint of right hand 10/14/2017 Pure hypercholesterolemia 10/14/2017 Encounters Date Type Department Care Team Description 05/06/2025 Refill [facility] [address] [place] [address] Chris Pascal MD Medication Refill 03/23/2025 Telephone [facility] [address] [place] [address] Chris Pascal MD Ultrasound ordered/faxed 03/20/2025 9:30 AM EDT Office Visit [facility] [address] [place] [address] Chris Pascal MD Right hand pain (Primary Dx); Pure hypercholesterolemia; Essential hypertension; Liver function abnormality; Primary osteoarthritis of first carpometacarpal joint of right hand; Impaired fasting glucose 03/05/2025 Telephone [facility] [address] [place] [address] Yuly Laureano RN Results 03/02/2025 Orders Only [facility] [address] [place] [address] Provider, MD Darion from Last 3 Months Immunizations Immunization Administration Dates Next Due COVID-19 (Pre-07/19) Moderna Vaccine, mRNA, PF 12/26/2020,11/28/2020 INFLUENZA, SPLIT VIRUS, TRIV ALENT W/ PRESERVATIVE IM 06/18/2014 Influenza High-Dose Quadriva lent Preservative Free IM 06/15/2023,06/26/2022,06/24/2020 Influenza High-Dose Trivalen t Preservative Free IM 06/06/2019,06/28/2017,06/19/2016,06/27 Influenza Quadrivalent Adjuv anted Preservative Free IM 06/25/2021 Influenza Trivalent Adjuvant ed Preservative free IM 06/01/2024,06/06/2019,06/09/2018 Pneumococcal conjugate PCV13 09/26/2014 Pneumococcal polysaccharide PPSV23 11/30/2011, RSV Vaccine (monovalent, adjuvanted) 11/26/2023 Td (adult) 5 Lf Tetanus Toxo id, PF, Adsorbed 07/28/2005 Tdap 11/23/2022,03/22/2012 Zoster live 01/12/2012 Zoster recombinant 05/30/2018,02/24/2018 Family History Medical History Relation Comments Heart attack Father Heart disease Father Stroke Father Kidney failure Mother Lung cancer Paternal Grandfather Relation Status Comments Brother Father (Age 95) d/t pneumonia Mother (Age 80) d/t plaque bedolla ld up in arteries Paternal Grandfather Son Alive Social History Tobacco Use Types Packs/Day Years Used Date Smoking Tobacco: Former Cigarettes 1.5 27 1 963 - 09/27/1989 Smokeless Tobacco: Never Tobacco Cessation:Counseling Given: Not Answered Alcohol Use Standard Drinks/Week Comments Not Currently 0 (1 standard drink = 0.6 oz pur e alcohol) quit drinking 1991 Education Answer Date Recorded Are you interested in more education? Not on ange e 01/22/2023 Are you concerned about learning? Not on file 01/22/2023 No 01/22/2023 No 01/22/2023 Digital Access Answer Date Recorded No 02/22/2023 No 02/22/2023 Reliable internet access at home? Not on file 02/22/2023 Device with a working camera? Not on file Intimate Partner Violence Answer Date R ecorded Denied Basic Needs Not on file 11/16/2024 In the past 12 months have y ou been in a relationship with a person who hurts, threatens, or tries to control you? No 11/16/2024 Worried food would run out Not on file 11/16 In the past 12 months have y ou been in a relationship with a person who hurts, threatens, or tries to control you? No 11/16/2024 Sex and Gender Information Value Date Recorded Sex Assigned at Not on file Legal Sex Male 10:07 PM EDT Gender Identity Not on file Sexual Orientation Not on file Last Filed Vital Signs Vital Sign Reading Time Taken Comments Blood Pressure 126/60 03/20/2025 9:22 AM EDT Pulse 79 03/20/2025 9:22 AM EDT Temperature 36.5 C (97.7 F) 03/20/2025 9:22 AM EDT Respiratory Rate 24 03/20/2025 9:22 AM EDT Oxygen Saturation 96% 03/20/2025 9:22 AM EDT Inhaled Oxygen Concentration - - Weight 77 kg (169 lb 12.8 oz) 03/20/2025 9:22 AM EDT Height 171.5 cm (5' 7.52 ) 03/20/2025 9:22 AM ED T Body Mass Index 26.19 03/20/2025 9:22 AM EDT Plan of Treatment Upcoming Encounters Date Type Department Care Team (Late st Contact Info) Description 07/27/2025 10:30 AM EDT Office Visit [facility] [address] [place] [address] Chris Pascal MD [address] [place] [address] 11/23/2025 10:00 AM EST Office Visit [facility] [address] [place] [address] Chris Pascal MD [address] [place] [address] Health Maintenance Due Date Last Done Comments COVID-19 VACCINE ( season) 2024 06/01/2024, 06/17/2023, 06/26/2022, Additional history exists BLOOD PRESSURE 09/19/2025 03/20/2025 CREATININE LEVEL 10/17/2025 10/17/2024, 07/2024, 02/24/2024, Additional history exists POTASSIUM LEVEL 10/17/2025 10/17/2024, 06/0 02/2024, 03/02/2024, Additional history exists DEPRESSION SCREENING 11/16/2025 11/16/2024 LIPID PANEL 10/17/2029 10/17/2024, 09/28, 10/17/2024, Additional history exists Adult Td,Tdap Booster 11/23/2032 11/23/2022 , 03/22/2012, 07/28/2005 PNEUMOCOCCAL VACCINES (50+ years) Completed 09/26/2014, 11/30/2011, 08/27/2006 ZOSTER VACCINES Completed 05/30/2018, 01/27, 01/12/2012 HEPATITIS C SCREENING Completed 11/08/2019 , 11/08/2019, 11/08/2019 RSV VACCINE Completed 11/26/2023 SMOKING STATUS SCREENING (Once After 26 Yrs) Completed 03/20/2025 HEPATITIS A VACCINES Aged Out No long er eligible based on patient's age to complete this topic HIB VACCINES Aged Out No longer eligi ble based on patient's age to complete this topic MENINGOCOCCAL VACCINES (ACWY) Aged Out No longer eligible based on patient's age to complete this topic MENINGOCOCCAL VACCINES (B) Aged Out N o longer eligible based on patient's age to complete this topic Medical Devices Not on file Procedures Procedure Name Priority Date/Time Associated Diagnosis Comments US ABDOMEN COMPLETE Routine 03/20/2025 9 :27 PM EDT Liver function abnormality OUTSIDE LAB Routine 02/28/2025 10:34 AM EDT OUTSIDE HDL Routine 10/17/2024 OUTSIDE POTASSIUM LEVEL Routine 10/17/2024 OUTSIDE SERUM CREATININE LEVEL Routine 10/17/2024 HEPATITIS C ANTIBODY, QUALITATIVE Routine 11/08/2019 from Last 3 Months or Most Recently Relevant to Health Maintenance Results * Outside Lab (02/28/2025 10:34 AM EDT) Result [facility] Historical Provider MD LAB BLOOD ORDERABLES Kate l Result * Outside Potassium Level (10/17/2024) Potassium level - External 3.6 3.4 - 5.0 mmol/L EXTERNAL NON-INTERFACED REF LAB Result [facility] Historical Provider MD LAB BLOOD ORDERABLES Kate l Result Performing Organization Address City/[facility]/ZIP Co de Phone Number EXTERNAL NON-INTERFACED REF LAB * Outside Serum Creatinine Level (10/17/2024) Creatinine, serum - External 0.86 0.8 - 1.3 mg/dL EXTERNAL NON-INTERFACED REF LAB Result [facility] Historical Provider MD LAB BLOOD ORDERABLES Kate l Result Performing Organization Address City/[facility]/ZIP Co de Phone Number EXTERNAL NON-INTERFACED REF LAB * Outside HDL (10/17/2024) HDL - External 43 40 - 80 mg/dL EXTERNAL NON-INTERFACED REF LAB Result [facility] Provider MD LAB BLOOD ORDERABLES Kate l Result Performing Organization Address City/[facility] Co de Phone Number EXTERNAL NON-INTERFACED REF LAB * Hepatitis C antibody, qualitative (11/08/2019) Result [facility] Chris Pascal MD LAB BLOOD ORDERABLES Edited R esult - Final from Last 3 Months or Most Recently Relevant to Health Maintenance Insurance MEDICARE PART A & B [facility] MEDICARE PART A & B [facility] MEDICARE PART A & B [facility] MEDICARE PART A & B [facility] MEDICARE PART A & B [facility] MEDICARE PART A & B [facility] MEDICARE PART A & B [facility] MEDICARE PART A & B [facility] MEDICARE PART A & B [facility] Advance Directives For more information, please contact: [phone] (9AM - 5PM [facility], Wednesday-Wednesday) Documents on File Type Date Recorded Patient Materials Associate Expl anation Healthcare Proxy 11/22/2023 HealthCare Proxy MOLST 11/22/2023 MOLST Healthcare Proxy 04/17/2019 healthcare proxy 04/17 * DNR/DNI (No CPR/No Intubation) (Latest Code Status on File) Date Activated Date Inactivated Comments 11/22/2023 10:54 AM Question Answer Comments Code Status Confirmed With: Patient Code Status Communicated To: PCP Code Discussion Comments: ptr has had molst form since 2014 Care Teams Crosscutter Rolled Glass Relationship Specialty Start Date End Date Chris Pascal MD [address] [place] [address] [email or web address] PCP - General 08/26/17 Chris Pascal MD [address] [place] [address] [email or web address] Insurance Assigned Provider 01/01/24 Eugene Gonzalez MD [address] [place] [address], [address] [address] [email or web address] Urology 10/23/19 Additional Source Comments The information contained in this document represents components of the legal health record. It is not the complete legal health record.[facility]
== END 2025-05-11 07:28 | disposition home or self-care (01) ==
LOC: HO.US 07:27
PROVIDERS: PCP Internal Medicine; Visit Provider Internal Medicine
DX: R94.5 Abnormal results of liver function studies (principal)
CPT/HCPCS: 76700

== ENCOUNTER → 2025-05-11 07:29 | Outpatient (BNV) | payer MEDICARE, BC, SELFPAY | PROVIDERS: PCP Internal Medicine; Visit Provider Radiology Diagnostic Radiology | DX: K76.0 Fatty (change of) liver, not elsewhere classified (principal) | CPT/HCPCS: 76700 ==

== ENCOUNTER 2025-07-10 07:32 | Outpatient (REF) | payer MEDICARE, BC, SELFPAY ==
--- OUTSIDE RECORDS SUMMARY | 2025-07-10 07:35 | XMS_ITS | Patient Health Record ---
Author Organization [facility] Address [address] [place] [address] Care Team Providers Care Laboratory Assistant Name Role Phone Chris Pascal MD Primary [...] GM As directed Orally Over the specified time.; Duration: 1 day(s) 06/27/2014 Active Aspirin 81 MG 1 tablet Orally Once a day Active Metamucil 30.9 % Orally Act tanisha Multivitamin Orally Active Problems Problem Type SNOMED Code ICD Code Onset Dates Problem Status W/U Status Risk Notes Problem Colon cancer screening (707776505) Colon cancer screening (V76.51) Active confirmed Problem Long-term current use of aspirin (0743644629672 03) Aspirin long-term use (V58.66) Active confirmed Plan Of Treatment Future Test Test Name Order Date COLONOSCOPY 06/27/2014 Insurance Providers Payer Name Payer Address Payer Phone Subscriber Number Group Number Insured Name Patient Relationship to Insured Coverage Start Date Coverage End Date MEDIC[place] [address] [place] [address] [phone] [id number] ZAFAR STRAUSS Self - patient is the insured [facility] [address] [place], [place] [id number] [phone] [id number] ZAFAR STRAUSS Self - patient is the insured Medical (General) History Medical History History ICD Code hypertension elevated PSA Surgical History Surgery Date(Month/Year) vasectomy prostate biopsy dental extractions
--- OUTSIDE RECORDS SUMMARY | 2025-07-10 07:35 | XMS_ITS | Patient Health Record ---
[facility] Address [address] [facility] [address] [facility] [facility] [place] [address] Care Team Providers Care Linen Tech Name Role Phone Chris Pascal MD Primary Care Provider Maddy De La Torre Unavailable [phone] Allergies Allergen (clinical drug ingredient) Drug/Non Drug [...] Inc [address] [place] [address] [id number] Edmar Chin Self - patient is the insured [facility] [address] [place] [address] [id number] Edmar Chin Self - patient is the insured Medical (General) History Medical History History ICD Code Chicken pox Arthritis asthma Headaches Hiatal hernia High blood pressure Stroke Warts Surgical History Surgery Date(Month/Year) dental hernia
--- OUTSIDE RECORDS SUMMARY | 2025-07-10 07:36 | XMS_ITS | Clinical Summary ---
Author Organization [facility] Address [address] [place] [address] Phone Care Team Providers Care Playground Worker Name Role Phone Chris Pascal MD Unavailable [phone] Chris Pascal MD Primary Care Provider Eugene Gonzalez MD Unavailable [phone] Allergies Active Allergy Reactions Criticality Noted [...] tablet Take 1 tablet by mouth daily. 022 Active TENS UNITS MISC by Miscellaneous route. Active lidocaine (LIDODERM) 5 %Indications:Chronic left shoulder pain,Chronic right-sided thoracic back pain Place 1 patch onto the skin daily as needed. Remove & Discard patch within 12 hours or as directed by 30 patch 5 024 Active atorvastatin (LIPITOR) 40 MG tabletIndications:Pure hypercholesterolemia TAKE ONE TABLET BY MOUTH EVERY DAY 90 tablet 3 025 Active clopidogrel (PLAVIX) 75 mg tablet TAKE ONE TABLET BY MOUTH EVERY DAY 90 tablet 3 025 Active amLODIPine (NORVASC) 5 MG tabletIndications:Lynsey burden essential hypertension TAKE ONE TABLET BY MOUTH EVERY DAY 90 tablet 3 025 Active traMADoL (ULTRAM) 50 mg tabletIndications:Right hand pain Take 1 tablet (50 mg total) by mouth every 12 (twelve) hours as needed for pain (specific location in comments) (right hand pain). 14 tablet 025 Active lisinopril (PRINIVIL,ZESTRIL) 40 MG tabletIndications:Essen tial hypertension Take 0.5 tablets (20 mg total) by mouth 2 (two) times a day. 90 tablet 025 Active Active Problems Problem Noted Date Diagnosed Date [...] Encounters Date Type Department Care Team Description 05/14/2025 Orders Only [facility] [address] [facility] [place] [address] ProviderDarion MD 05/06/2025 Refill [facility] [address] [facility] [place] [address] Chris Pascal MD Medication Refill from Last 3 Months Immunizations Immunization Administration [...] Description 07/27/2025 10:30 AM EDT Office Visit [facility] [address] [facility] [place] [address] Chris Pascal MD [address] [place] [address] [email or web address] 11/23/2025 10:00 AM EST Office Visit [facility] [address] [place] [address] Chris Pascal MD [address] [place] [address] [email or web address] Health Maintenance Due Date Last Done Comments INFLUENZA VACCINE (#1) 2025 , 06/15/2023, 06/15/2023, Additional history exists COVID-19 VACCINE ( season) 2025 06/01/2024, 06/17/2023, 06/26/2022, Additional history exists BLOOD [...] Procedure Name Priority Date/Time Associated Diagnosis Comments OUTSIDE IMAGING Routine 05/11/2025 11:03 AM EDT OUTSIDE IMAGING Routine 05/11/2025 10:32 AM EDT OUTSIDE HDL Routine 10/17/2024 OUTSIDE POTASSIUM LEVEL Routine 10/17/2024 OUTSIDE SERUM CREATININE LEVEL Routine 10/17/2024 HEPATITIS C ANTIBODY, QUALITATIVE Routine 11/08/2019 from Last 3 Months or Most Recently Relevant to Health Maintenance Results * Outside Imaging Report Only (05/11/2025 11:03 AM EDT) Result [facility] Provider IMG XR CHEST Final Res ult * Outside Imaging Report Only (05/11/2025 10:32 AM EDT) Historical Provider IMG XR CHEST Final Res ult * Outside Potassium Level (10/17/2024) Potassium level - External 3.6 3.4 - 5.0 mmol/L EXTERNAL NON-INTERFACED REF LAB Historical Provider LAB BLOOD ORDERABLES Kate l Result EXTERNAL NON-INTERFACED REF LAB * Outside Serum Creatinine Level (10/17/2024) Creatinine, serum - External 0.86 0.8 - 1.3 mg/dL EXTERNAL NON-INTERFACED REF LAB us Historical Provider MD LAB BLOOD ORDERABLES Kate l Result EXTERNAL NON-INTERFACED REF LAB * Outside HDL (10/17/2024) HDL - External 43 40 - 80 mg/dL EXTERNAL NON-INTERFACED REF LAB us Historical Provider MD LAB BLOOD ORDERABLES Kate l Result EXTERNAL NON-INTERFACED REF LAB * Hepatitis C antibody, qualitative (11/08/2019) us Chris Pascal MD LAB BLOOD ORDERABLES Edited R esult - Final from Last 3 Months or Most Recently Relevant to Health Maintenance Insurance MEDICARE PART A & B [facility] MEDICARE PART A & B [id number] [place] [address] MEDICARE PART A & B [facility] MEDICARE PART A & [place] [address] [place] [place] [address] MEDICARE PART A & B [facility] MEDICARE PART A & B [employer] MEDICARE PART A & B [facility] MEDICARE PART A & B [facility] MEDICARE PART A & B [facility] FEDERAL Advance Directives For more information, please contact: [phone] (9AM - 5PM [facility], Wednesday-Wednesday) Documents on File Type Date Recorded Patient Brim Stretcher Expl anation Healthcare Proxy 11/22/2023 HealthCare Proxy MOLST 11/22/2023 MOLST Healthcare Proxy 04/17/2019 healthcare proxy 04/17 * DNR/DNI (No CPR/No Intubation) (Latest Code Status on File) Date Activated Date Inactivated Comments 11/22/2023 10:54 AM Question Answer Comments Code Status Confirmed With: Patient Code Status Communicated To: PCP Code Discussion Comments: ptr has had molst form since 2013 Care Teams Playground Worker Relationship Specialty Start Date End Date Chris Pascal MD [address] [place] [address] PCP - General 08/26/17 Chris Pascal MD [address] [place] [address] Insurance Assigned Provider 01/01/24 Eugene Gonzalez MD [address] [place] [address], [address] [address] Urology 10/23/19 Additional Source Comments The information contained in this document represents components of the legal health record. It is not the complete legal health record.[facility]
[2025-07-10 08:00] LABS: MANUAL DIFF FLAG NO
[2025-07-10 08:25] LABS: Appearance Urine Clear; Glucose Urine UA Negative (Negative); PH 6.5 (5.0-9.0); Specific Gravity - Urine 1.020 (1.005-1.025)
[2025-07-10 08:31] LABS: Hematocrit 45.6 % (42.0-52.0); Hemoglobin 15.2 g/dl (14.0-18.0); Imm Gran Abs Auto 0.03 X10*3/uL (0.00-0.03); Imm Gran Pct Auto 0.3 % (0.0-0.4); Lymphocytes Absolute Auto 2.3 X10*3/uL (1.2-4.9); Mean Corpuscular HGB Conc 33.3 g/dl (31.0-36.0); Mean Corpuscular Hemoglobin 31.3 pg (27.0-33.0); Mean Corpuscular Volume 93.8 fL (80.0-98.0); NRBC Abs Auto 0.000 X10*3/uL (0.0-0.012); NRBC Pct Auto 0.0 /100WBC (0.0-0.2); Platelet Count 176 X10*3/uL (160-400); Red Blood Count 4.86 X10*6/uL (4.60-5.80); White Blood Count 8.8 X10*3/uL (4.8-10.8)
[2025-07-10 09:02] LABS: Alanine Aminotransferase 46 U/L (0-40); Albumin Level 4.2 g/dL (3.5-5.0); Alkaline Phosphatase 88 U/L (39-117); Anion Gap 12 (12-20); Aspartate Amino Transferase 40 U/L (5-37); Blood Urea Nitrogen 14 mg/dL (9-16); Calcium 9.0 mg/dL (8.4-10.2); Carbon Dioxide 29 mmol/L (22-29); Chloride 105 mmol/L (96-108); Cholesterol 119 mg/dL (<200); Estimated Glomerular Filt Rate > 60; HDL Cholesterol 41 mg/dL (>40); Potassium 3.9 mmol/L (3.3-5.1); Sodium 142 mmol/L (135-145); Total Protein 7.1 g/dL (6.5-8.0); Triglycerides 100 mg/dL (<150)
[2025-07-10 09:05] LABS: Hemoglobin A1C 140.6578 umol/L; Total Hemoglobin (HGBA1C) 3806.6123 umol/L
== END 2025-07-10 07:33 | disposition home or self-care (01) ==
LOC: HO.LAB 07:32
PROVIDERS: PCP Internal Medicine; Visit Provider Internal Medicine
DX: M18.11 Unilateral primary osteoarthritis of first carpometacarpal joint, right hand (principal); M79.641 Pain in right hand; E78.00 Pure hypercholesterolemia, unspecified; I10 Essential (primary) hypertension; R73.01 Impaired fasting glucose
CPT/HCPCS: 36415; 80053; 80061; 81003; 83036; 84443; 85025

== ENCOUNTER 2025-08-06 08:41 | Outpatient (REF) | payer MEDICARE, BC, SELFPAY ==
--- NOTE | ~2025-08-06 | XR_ITS ---
EXAMINATION: XR LUMBOSACRAL SPINE CLINICAL INFORMATION: CHRONIC BILATERAL LOW BACK PAIN WITHOUT SCIATICA COMPARISON: None available. TECHNIQUE: AP and lateral views. FINDINGS: Multilevel marginal osteophyte formation and syndesmophyte formation throughout the axial skeleton. Multilevel endplate sclerosis and decreased intervertebral disc height throughout the axial skeleton pronounced at L4-5, L2-3 and T12-L1 levels. Grade 1 retrolisthesis at L2-3. Superior endplate sclerosis at L3. S-shaped curvature of the thoracolumbar spine. Facet joint hypertrophy at L4-5 and L5-S1. Vascular calcifications, aorta.. 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 Electronically signed by: Zain Hdez MD 08/06/2025 09:21 AM DK [facility]
--- OUTSIDE RECORDS SUMMARY | 2025-08-06 09:02 | XMS_ITS | Encounter Summary ---
Author Organization [facility] Address [address] [place] [address] Phone Care Team Providers Care Integration Director Name Role Phone Chris Pascal MD Unavailable [phone] Chris Pascal MD Primary Care Provider [phone] Eugene Gonzalez MD Unavailable [phone] Reason for Visit * Reason Onset Date Comments Medication Refill 08/03/2025 Encounter Details Date Type Department Care Team (Late st Contact Info) Description 08/03/2025 Refill [facility] [address], [place] [phone] Chris Pascal MD [address] [place] [address] [email or web address] Medication Refill Social History Tobacco Use Types Packs/Day Years Used Date Smoking Tobacco: Former Cigarettes 1.5 27 1 963 - 09/27/1989 Smokeless Tobacco: Never Alcohol Use Standard Drinks/Week Comments Not Currently [...] on file Sexual Orientation Not on file documented as of this encounter Progress Notes * Tracie Kaplan CMA - 08/03/2025 12:01 PM EST Lisinopril 40mg #90 last filled 05/07/25 Rx Care Gap Status - Instructions for Clinical Staff (prescriber discretion applies): > Mismatch review guide > At least one request does not meet full criteria. Specifics below. > Labs due: Please remind patient. > Orders needed: Click OPA and Accept to open SmartSet. BMP - Needs order * Visit Info Last visit: 07/27/2025 Chris Pascal MD - Internal Medicine [facility] > Requested f/u: Not specified Upcoming visit: 11/23/2025 Chris Pascal MD - Internal Medicine [facility] ACTIONS TAKEN BY Tracie Kaplan CMA - Updated rx duration per protocol. ACEi / ARBs / Diuretic Rx Protocol (on HTN Registry) - lisinopril Criteria not met; renew for up to 3 months. Visit in the past 14 months: Yes Clinical criteria: - BP within last 6 months: 109/46 on 07/27/2025 - BMP within past year: 07/10/25 - Cr, GFR and K are normal: Yes Lab Results Component Value Date Potassium level - External 3.9 07/10/2025 Creatinine, serum - External 1.0 07/10/2025 No Health Maintenance Labs Overdue documented in this encounter Plan of Treatment Upcoming Encounters Date Type Department Care Team (Late st Contact Info) Description 11/23/2025 10:00 AM EST Office Visit [facility] Internal Medicine [address] [place] [address] Chris Pascal MD [address] [place] [address] [email or web address] documented as of this encounter Visit Diagnoses Diagnosis Essential hypertension Unspecified essential hypertension documented in this encounter Additional Health Concerns Assessment Noted Time PHQ-2 Depression Total Score: 0 11/16/19 25 8:10 AM EST documented as of this encounter Care Teams Integration Director Relationship Specialty Start Date End Date Chris Pascal MD [address] [place] [address] PCP - General 08/26/17 Chris Pascal MD [address] [place] [id number] Insurance Assigned Provider 01/01/24 Eugene Gonzalez MD [address] [place] [address], [address] [address] Urology 10/23/19 documented as of this encounter Additional Source Comments The information contained in this document represents components of the legal health record. It is not the complete legal health record.[facility]
--- OUTSIDE RECORDS SUMMARY | 2025-08-06 09:02 | XMS_ITS | Patient Health Record ---
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 Name Role Phone Chris Pascal MD Primary [...] Status Risk Notes Problem Colon cancer screening (269413310) Colon cancer screening (V76.51) Active confirmed Problem Long-term current use of aspirin (2221478414078 03) Aspirin long-term use (V58.66) Active confirmed Plan Of Treatment Future Test Test Name Order Date COLONOSCOPY 06/27/2014 Insurance Providers Payer Name Payer Address Payer Phone Subscriber Number Group Number Insured Name Patient Relationship to Insured Coverage Start Date Coverage End Date MED[place] [address] [place] [address] [id number] ZAFAR STRAUSS Self - patient is the insured [facility] [address] [place], [place] [id number] ZAFAR STRAUSS Self - patient is the insured Medical (General) History Medical History History ICD Code hypertension elevated PSA Surgical History Surgery Date(Month/Year) vasectomy prostate biopsy dental extractions
--- OUTSIDE RECORDS SUMMARY | 2025-08-06 09:02 | XMS_ITS | Patient Health Record ---
[facility] Address [address] [facility] [facility] [place] [address] Care Team Providers Care Materials Scientist Name Role Phone Chris Pascal MD Primary Care Provider Maddy De La Torre Unavailable [phone] Allergies Allergen (clinical drug ingredient) Drug/Non Drug [...] Inc [address] [place] [address] [id number] Edmar Chin Self - patient is the insured [facility] [address] [place] [address] [id number] Edmar Chin Self - patient is the insured Medical (General) History Medical History History ICD Code Chicken pox Arthritis asthma Headaches Hiatal hernia High blood pressure Stroke Warts Surgical History Surgery Date(Month/Year) dental hernia
== END 2025-08-06 08:42 | disposition home or self-care (01) ==
LOC: HO.XRAY 08:41
PROVIDERS: PCP Internal Medicine; Visit Provider Internal Medicine
DX: M54.50 Low back pain, unspecified (principal); G89.29 Other chronic pain
CPT/HCPCS: 72100

== ENCOUNTER → 2025-08-06 08:47 | Outpatient (BNV) | payer MEDICARE, BC, SELFPAY | PROVIDERS: PCP Internal Medicine; Visit Provider Radiology Diagnostic Radiology | DX: M47.815 Spondylosis without myelopathy or radiculopathy, thoracolumbar region (principal) | CPT/HCPCS: 72100 ==